=== PATIENT | female | born 1930 | race Caucasian/White ===

== ENCOUNTER 2016-12-26 14:59 | Inpatient (IN) | payer MEDICARE, MEDICAID ==
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
--- NOTE | 2016-12-26 21:56 | PCM.DCSUM1 ---
Discharge Summary - Hospital Course Free Text/Narrative:: Final diagnosis: -Sudden drop in Hb, presume occult GI bleed, even with the absence of hematemesis or melena with her iron saturation of 2.5%, it looks like this might have been coming on for a while; still needs a transfusion now -Mild dementia, aggravating chronic mild anxiety depression -Coronary disease -Impaired Fasting Glucose Reason for Admission: Weakness, pallor, Hb of 5.0 Initial Findings: Surprisingly undistressed given her degree of anemia, along with her severely low iron saturation, lending credence to this being a subacute process, see H&P for exam findings and lab Treatment and Course in Hospital: She was only in the hospital about one hour, when we found that A neg blood was not available was T/F to [place] Condition on Discharge: BP 118, able to answer questions but has dementia Discharge Plan: Because she is a negative and we dont have blood available for her, discussed with [facility] Hospitalist and they will accept in transfer, sent there by ground ambulance. Since she has normal BP Im reluctant to overload her with fluid and she is just going with a saline lock. - Discharge Data Discharge Date: 12/26/16 Discharge Disposition: DC/Tfer to Acute Hospital 02 Condition: Poor - Discharge Plan Home Medications: Home Meds Aspirin [Low Dose Aspirin EC] 81 mg PO DAILY 10/02/15 [History] Brimonidine/Timolol [Combigan 0.2%/0.5% Ophth Soln] 1 drop EYERT BID 10/02/15 [ History] Cholecalciferol (Vitamin D3) [Vitamin D3] 1,000 units PO DAILY 10/02/15 [History ] Clobetasol [Temovate 0.05% Oint] 1 applic TOP BID PRN 10/02/15 [History] DULoxetine [Cymbalta] 60 mg PO DAILY 10/02/15 [History] Denosumab [Prolia] 60 mg SUBCUT ASDIRECTED 10/02/15 [History] Esomeprazole [NexIUM] 40 mg PO DAILY 10/02/15 [History] Hydrochlorothiazide 25 mg PO DAILY 10/02/15 [History] Menthol/Methyl Salicylate [Icy Hot Cream] 1 applic TOP QID PRN 10/02/15 [History ] Metoprolol Succinate [Toprol XL] 75 mg PO DAILY 10/02/15 [History] Simethicone [Gas-X] 250 mg PO DAILY 10/02/15 [History] atorvaSTATin [Lipitor] 10 mg PO DAILY 10/02/15 [History] rOPINIRole HCl [Requip] 1 mg PO BEDTIME 10/02/15 [History] Acetaminophen 650 mg PO Q4H PRN 12/26/16 [History] Acetaminophen [Acetaminophen ER] 650 mg PO TID 12/26/16 [History] Bisacodyl 5 mg PO DAILY PRN 12/26/16 [History] Budesonide/Formoterol [Symbicort 80-4.5 MCG] 2 puff INH BID 12/26/16 [History] Calcium Citrate/Vitamin D3 [Calcium Cit-Vit D 315-200] 2 tab PO DAILY 12/26/16 [ History] Docusate Sodium/Sennosides [Senna Plus] 2 tab PO DAILY 12/26/16 [History] Eucalyptus/Menthol [Cough Drops] 1 lozenge PO ASDIRECTED PRN 12/26/16 [History] Nystatin [Nystop] 1 applic TOP BID PRN 12/26/16 [History] Oxybutynin [Oxybutynin ER] 5 mg PO DAILY 12/26/16 [History] Ranitidine HCl 150 mg PO BID 12/26/16 [History] Trolamine Salicylate/Aloe Vera [Aspercreme 10%] 1 applic TOP Q8H PRN 12/26/16 [ History] traMADol HCl [Ultram] 50 mg PO Q8H PRN 12/26/16 [History] - Patient Data Vitals - Most Recent: Last Vital Signs Temp Pulse Resp 18 12/26/16 15:38 BP Pulse Ox 93 L 12/26/16 15:38 Weight - Most Recent: 63.73 kg Lab Results - Last 24 hrs: Laboratory Results - last 24 hr 12/26/16 12/26/16 Range/Units 16:00 16:00 WBC 13.4 H (4.0-10.0) x10^3/uL RBC 1.78 L (4.00-5.50) x10^6/uL Hgb 5.0 L* (12.0-16.0) g/dL Hct 16.4 L (33.0-47.0) % MCV 92.1 (78.0-93.0) fL MCH 28.1 (26.0-32.0) pg MCHC 30.5 L (32.0-36.0) g/dL RDW Coeff of Reji 13.8 (10.0-15.0) % Plt Count 447 H (130-400) x10^3/uL Neut % (Auto) 73.5 (50.0-80.0) % Lymph % (Auto) 17.0 L (25.0-50.0) % [place] % (Auto) 8.6 (2.0-11.0) % Eos % (Auto) 0.7 (0.0-4.0) % Baso % (Auto) 0.2 (0.2-1.2) % Iron 11 L (50-170) ug/dL TIBC 444 (250-450) ug/dL % Saturation 2.5 L (20.0-50.0) % *Q Meaningful Use (DIS) - VTE *Q VTE Criteria *Q: - Stroke *Q Stroke Criteria *Q: - AMI *Q AMI Criteria *Q:
== END 2016-12-26 17:45 | disposition short-term general hospital (02) | DRG 812 ==
LOC: VM.MS 15:10
PROVIDERS: ADMIT Family Medicine; ATTEND Family Medicine
DX: D64.9 Anemia, unspecified (principal); H40.9 Unspecified glaucoma; H91.90 Unspecified hearing loss, unspecified ear; I25.10 Atherosclerotic heart disease of native coronary artery without angina pectoris; I10 Essential (primary) hypertension; E78.00 Pure hypercholesterolemia, unspecified; I25.2 Old myocardial infarction; M19.90 Unspecified osteoarthritis, unspecified site; M81.0 Age-related osteoporosis without current pathological fracture; G89.4 Chronic pain syndrome; G25.81 Restless legs syndrome; F32.9 Major depressive disorder, single episode, unspecified; E55.9 Vitamin D deficiency, unspecified; F03.90 Unspecified dementia, unspecified severity, without behavioral disturbance, psychotic disturbance, mood disturbance, and anxiety; R73.01 Impaired fasting glucose; Z79.82 Long term (current) use of aspirin; Z79.899 Other long term (current) drug therapy; Z96.651 Presence of right artificial knee joint; Z88.8 Allergy status to other drugs, medicaments and biological substances
CPT/HCPCS: 36415; 82607; 82746; 83540; 83550; 85025